=== PATIENT | female | born 1985 | race Caucasian/White ===

== ENCOUNTER 2021-01-05 20:02 | Inpatient (IN) ==
[2021-01-05] MEDS ORDERED: Lactated Ringers 1000 ml BAG 1,000 ML IV ONE (21:06)
[2021-01-05] MEDS ORDERED: Buffered Lidocaine 1% SYRIN 1 ml INTRADERM ONE (21:06)
[2021-01-05 21:43] LABS: Urine Benzodiazepine Screen None Detected (None Detect); Urine Cannabinoids Screen None Detected (None Detect); Urine Opiates Screen None Detected (None Detect)
[2021-01-05 21:53] LABS: Rapid COVID-19 Molecular Undetected (Undetected)
[2021-01-05] MEDS ORDERED: Ondansetron ODT 4 mg TAB 4 MG TAB SL PRN (23:08)
[2021-01-06] MEDS ORDERED: OBEPIDURAL 250 ML EPIDURAL ONE (01:07)
[2021-01-06] MEDS ORDERED: Ondansetron 4 mg VIAL 2 MG/ML 2 ml VIAL IV PRN (01:11)
[2021-01-06 01:34] LABS: ABS Lymphocytes 1.3 10^3/ul (1.0-4.8); ABS Monocytes 0.6 10^3/ul (0-0.8); ABS Neutrophils 12.7 10^3/ul (1.5-7.7); Eosinophil % 0.1 %; Hematocrit 40 % (35-47); Hemoglobin 13.8 g/dL (12.0-16.0); Lymphocyte % 8.9 %; Mean Corpuscular HGB Conc 34 g/dL (31-36); Mean Corpuscular Hemoglobin 31 pg (27-31); Mean Corpuscular Volume 90 fL (80-97); Mean Platelet Volume 9.7 fL (7.4-10.4); Platelet Count 235 10^3/uL (150-450); Red Blood Count 4.46 10^6 /uL (3.70-4.87); Red Cell Distribution Width 13 % (10-15); White Blood Count 14.6 10^3/uL (3.5-10.8)
[2021-01-06] MEDS: Lactated Ringers 1000 ml BAG 1,000 ML IV SCH ×2 (01:46→02:45)
[2021-01-06] MEDS ORDERED: EPHEDrine (Pressors) 50 MG/ML VIAL IV PUSH PRN ×2 (02:48)
[2021-01-06] MEDS ORDERED: Sodium Citrate/Citric Acid LIQ 15 ML UDC PO PRN (02:48)
[2021-01-06] MEDS ORDERED: Phenylephrine 40 mcg/mL 10mL (400mcg) SYRINGE IV PUSH PRN ×2 (02:48)
[2021-01-06] MEDS ORDERED: Lactated Ringers 1000 ml BAG 1,000 ML IV ONE (02:48)
[2021-01-06] MEDS ORDERED: OBEPIDURAL 250 ML EPIDURAL SCH (03:00)
[2021-01-06] MEDS ORDERED: Lactated Ringers 1000 ml BAG 1,000 ML IV SCH (03:00)
[2021-01-06 03:17] LABS: Urine Appearance Clear; Urine Bilirubin Negative (Negative); Urine Blood Negative (Negative); Urine Color Yellow; Urine Glucose 1+(50 mg/dL) (Negative); Urine Ketones 2+ (Negative); Urine Nitrite Negative (Negative); Urine Protein 1+(30 mg/dL) (Negative); Urine Specific Gravity 1.026 (1.002-1.030); Urine Urobilinogen Negative (Negative)
[2021-01-06 03:33] LABS: Urine Bacteria Absent (Absent); Urine Red Blood Cell Trace(0-2/hpf) (Absent); Urine Squamous Epithelial Cell Present (Absent); Urine White Blood Cell Trace(0-5/hpf) (Absent)
[2021-01-06] MEDS ORDERED: Oxytocin in LR 0 UNITS/0 ML BAG IVPB ONE (05:47)
[2021-01-06] MEDS ORDERED: Glycerin ADULT 2.4 gm SUPP PR PRN (05:58)
[2021-01-06] MEDS ORDERED: Dibucaine 1% OINT 28.35 GM TUBE PR PRN (05:58)
[2021-01-06] MEDS ORDERED: Witch Hazel PAD JAR TOPICAL PRN (05:58)
[2021-01-06] MEDS ORDERED: Phenylephrine 40 mcg/mL 10mL (400mcg) SYRINGE ONE (10:46)
[2021-01-07 07:10] LABS: ABS Eosinophils 0.1 10^3/ul (0-0.6); ABS Monocytes 0.7 10^3/ul (0-0.8); ABS Neutrophils 8.2 10^3/ul (1.5-7.7); Eosinophil % 1.3 %; Hematocrit 36 % (35-47); Hemoglobin 12.1 g/dL (12.0-16.0); Lymphocyte % 17.9 %; Mean Corpuscular HGB Conc 34 g/dL (31-36); Mean Corpuscular Hemoglobin 31 pg (27-31); Mean Corpuscular Volume 92 fL (80-97); Platelet Count 203 10^3/uL (150-450); Red Blood Count 3.93 10^6 /uL (3.70-4.87); Red Cell Distribution Width 14 % (10-15); White Blood Count 11.1 10^3/uL (3.5-10.8)
[2021-01-07 08:00] VITALS: BP 111/57
== END 2021-01-07 17:30 | disposition home or self-care (01) | DRG 807 ==
LOC: MCHOBOUT 20:02 → MCHOB 20:16
PROVIDERS: ADMIT Midwife; ATTEND Midwife